=== PATIENT | female | born 1995 ===

== ENCOUNTER 2023-05-02 16:16 | Emergency (ER) | payer OTHER ==
[~2023-05-02] VITALS: Ht 162.6 cm; Wt 48.6 kg
[2023-05-02 16:24] VITALS: TEMP 98.3
[2023-05-02 19:00] VITALS: BP 119/63; PULSE 72; RESP 18
== END 2023-05-02 19:17 | disposition home or self-care (01) ==
LOC: EMS 16:19
DX: R07.89 Other chest pain (principal); F41.9 Anxiety disorder, unspecified
CPT/HCPCS: 71045; 93005; 99283